=== PATIENT | female | born 1960 | race Caucasian/White ===

== ENCOUNTER 2020-09-18 10:20 | Outpatient (CLI) | payer BC ==
[2020-09-18 15:50] LABS: ALBUMIN 4.5 g/dL (3.2-5.5); ALBUMIN/GLOBULIN RATIO 1.7 (1.0-2.2); ALKALINE PHOSPHATASE 50 IU/L (42-121); ALT ALANINE AMINOTRANSFERASE 34 IU/L (10-60); AST ASPARTATE AMINOTRANSFERASE 27 IU/L (10-42); BILIRUBIN,TOTAL 0.9 mg/dL (0.2-1.0); BUN - BLOOD UREA NITROGEN 12 mg/dL (6-20); CALCIUM 9.1 mg/dL (8.5-10.3); CARBON DIOXIDE - CO2 25 mmol/L (21-32); CHLORIDE 105 mmol/L (101-111); CHOL/HDL RATIO 2.4 (<4.4); CHOLESTEROL 137 mg/dL; GFR - MDRD 57 (>89); GLUCOSE 118 mg/dL (70-100); HDL CHOLESTEROL 56 mg/dL; LDL CHOLESTEROL,CALCULATED 64 mg/dL; LDL/HDL RATIO 1.1 (<4.4); POTASSIUM 4.3 mmol/L (3.5-5.0); SODIUM 141 mmol/L (135-145); TOTAL PROTEIN 7.1 g/dL (6.7-8.2); TRIGLYCERIDES 86 mg/dL; VLDL CHOLESTEROL 17 mg/dL
[2020-09-18 19:50] LABS: ESTIMATED AVERAGE GLUCOSE 134 mg/dL (70-100); HEMOGLOBIN A1c% 6.3 % (4.27-6.07)
== END 2020-09-18 10:21 | disposition home or self-care (01) ==
LOC: LAB.S 10:20
PROVIDERS: ATTEND Physician Assistant
DX: E03.9 Hypothyroidism, unspecified (principal); E78.5 Hyperlipidemia, unspecified; R73.03 Prediabetes; Z82.49 Family history of ischemic heart disease and other diseases of the circulatory system
CPT/HCPCS: 36415; 80053; 80061; 83036; 83721; 84443

== ENCOUNTER 2022-07-13 19:19 | Outpatient (CLI) | payer BC ==
--- NOTE | 2022-07-14 09:24 | Ultrasound Report ---
PROCEDURE: Pelvic w/Transvaginal INDICATIONS: CYST OF OVARY TECHNIQUE: Real-time scanning was performed of the pelvic organs, with image documentation. Additional endovagi nal scanning was necessary due to incomplete visualization of the adnexal and endometrial structures by transabdominal scanning. COMPARISON: None. FINDINGS: Uterus: Uterus is anteverted and normal in size at 6 x 2.5 x 4.1 cm. The myometrium is heterogeneou s. The endometrium measures 3 mm in combined thickness. Ovaries: The right ovary measures 1.2 x 0.9 x 1 cm, with a calculated ovarian volume of 1 cc. The l eft ovary measures 1.2 x 1.6 x 0.8 cm, with a calculated ovarian volume of 0.8 cc. The ovaries have a normal sonographic appearance. Less than 12 follicles can be seen in each ovary. Left paraovarian cystic mass, score below: Ovarian Lesion 1: Left paraovarian. Size: 5.6 (4.1. 5.8 cm. (Size >10 cm, O-RADS 3-5 features.) Composition: Cystic with solid components (O-RADS 4-5 features). Wall: Smooth (O-RADS 2 features) Septations: None (O-RADS 2 features). Papillary projections: >3 papillary projections (O-RADS 5). O-RADS score and recommendations: O-RADS 5 - gynecologic referral. Other: No pathologic free abdominal or pelvic fluid. IMPRESSION: O-RADS 5 paraovarian cystic lesion. Recommend gynecologic consultation. Reviewed by: Aneudy Landa on 07/14/2022 9:23 AM PDT Approved by: Aneudy Landa on 07/14/2022 9:23 AM PDT Station ID: [id number]
== END 2022-07-13 19:20 | disposition home or self-care (01) ==
LOC: DI 19:19
PROVIDERS: ATTEND Physician Assistant
DX: N83.202 Unspecified ovarian cyst, left side (principal)

== ENCOUNTER 2022-08-26 15:00 | Outpatient (CLI) | payer BC | END 2022-08-26 15:01 | disposition home or self-care (01) | LOC: LAB 15:00 | PROVIDERS: ATTEND Obstetrics & Gynecology Gynecologic Oncology | DX: Z01.818 Encounter for other preprocedural examination (principal); R19.00 Intra-abdominal and pelvic swelling, mass and lump, unspecified site | CPT/HCPCS: 36415; 86304; 93005 ==

== ENCOUNTER 2023-03-20 07:27 | Outpatient (CLI) | payer BC ==
[2023-03-20 15:22] LABS: ALBUMIN 4.3 g/dL (3.2-5.5); ALBUMIN/GLOBULIN RATIO 1.9 (1.0-2.2); ALKALINE PHOSPHATASE 43 IU/L (42-121); ALT ALANINE AMINOTRANSFERASE 19 IU/L (10-60); AST ASPARTATE AMINOTRANSFERASE 19 IU/L (10-42); BILIRUBIN,TOTAL 0.5 mg/dL (0.2-1.0); BUN - BLOOD UREA NITROGEN 9 mg/dL (6-20); CALCIUM 9.2 mg/dL (8.5-10.3); CARBON DIOXIDE - CO2 29 mmol/L (21-32); CHLORIDE 108 mmol/L (101-111); CHOL/HDL RATIO 3.8 (<4.4); CHOLESTEROL 239 mg/dL; CREATININE 0.7 mg/dL (0.6-1.3); GFR - MDRD 85 (>89); GLUCOSE 117 mg/dL (74-104); HDL CHOLESTEROL 63 mg/dL; LDL CHOLESTEROL,CALCULATED 147 mg/dL; LDL/HDL RATIO 2.3 (<4.4); POTASSIUM 4.3 mmol/L (3.5-4.5); SODIUM 142 mmol/L (135-145); TOTAL PROTEIN 6.6 g/dL (6.4-8.9); TRIGLYCERIDES 146 mg/dL (48-352); VLDL CHOLESTEROL 29 mg/dL
[2023-03-20 18:25] LABS: ESTIMATED AVERAGE GLUCOSE 123 mg/dL (70-100); HEMOGLOBIN A1c% 5.9 % (4.27-6.07)
== END 2023-03-20 07:28 | disposition home or self-care (01) ==
LOC: LAB.S 07:27
PROVIDERS: ATTEND Physician Assistant
DX: E78.5 Hyperlipidemia, unspecified (principal); Z82.49 Family history of ischemic heart disease and other diseases of the circulatory system; E03.9 Hypothyroidism, unspecified; R73.03 Prediabetes
CPT/HCPCS: 36415; 80053; 80061; 83036; 83721; 84439; 84443